=== PATIENT | female | born 1960 | race Caucasian/White ===

== ENCOUNTER 2016-11-26 00:36 | Emergency (ER) | payer BC ==
[~2016-11-26] VITALS: Ht 162.6 cm; Wt 88.0 kg
[~2016-11-26 00:36] MED LIST: ALL180 PO; ASCA500 PO; ESTR1TAB2 PO; LIDO5CRE3 RE; MULT-506 PO; MULTCAP7 PO; OMEG10007 PO; POLY335025 PO; PRT/20 PO; SENNTAB23 PO; TRMCR515 TOP
[2016-11-26 00:40] VITALS: TEMP 36.5; Ht 162.6 cm; Wt 88.0 kg
[2016-11-26] MEDS ORDERED: SODIUM CHLORIDE 0.9% 1000ML 1,000 ML IV STA ×2 (00:51→01:50)
[2016-11-26 01:33] LABS: BASO % 0.1 %; BASO ABS # 0.02 K/uL (0-0.2); COMPLETE YES; EOS % 0.4 %; HEMATOCRIT 45.8 % (37-47); IG% 0.2 %; LYMPH % 6.5 %; LYMPH ABS # 1.12 K/uL (1.2-3.4); MEAN CELL VOLUME 88.6 fL (80-100); MEAN CORPUSCULAR HEMOGLOBIN 32.5 pg (25-34); MEAN CORPUSCULAR HGB CONC 36.7 g/dl (32-36); MEAN PLATELET VOLUME 9.8 fL (7.4-10.4); NEUT % 87.8 %; PLATELET COUNT 236 K/uL (130-400); RED BLOOD COUNT 5.17 M/uL (4.2-5.4); WHITE BLOOD COUNT 17.14 K/uL (4.8-10.8)
[2016-11-26] MEDS ORDERED: ONDANSETRON INJ 2 MG/ML 2 ML VIAL IV STA (01:50)
[2016-11-26 02:02] LABS: URINE APPEARANCE CLOUDY (CLEAR); URINE BILIRUBIN NEG (NEG); URINE COLOR DK YELLOW; URINE EPITHELIAL CELL AUTO >30 /lpf (0-5); URINE NITRITE POS (NEG); UROBILINOGEN NEG (NEG); ZZUR CULT IF INDIC CLEAN CATCH YES
[2016-11-26 02:03] LABS: MANUAL MICROSCOPIC REQUIRED? NO; REVIEW REQ? YES
[2016-11-26 02:10] LABS: ALKALINE PHOSPHATASE 80 U/L (45-117); ALT/SGPT 29 U/L (12-78); AST/SGOT 28 U/L (15-37); BLOOD UREA NITROGEN 21 mg/dl (7-18); BUN/CREATININE RATIO 20.6 (10-20); CARBON DIOXIDE 21 mmol/L (21-32); CHLORIDE 109 mmol/L (98-107); GLUCOSE 128 mg/dl (70-99); POTASSIUM 4.5 mmol/L (3.5-5.1); SODIUM 143 mmol/L (136-145)
[2016-11-26 02:28] LABS: URINE MUCUS PRESENT (NONE PRSENT)
[2016-11-26] MEDS ORDERED: CEFTRIAXONE SOD INJ 1 GM ADDVIAL IV STA (02:36)
[2016-11-26] MEDS ORDERED: ONDANSETRON HOME PACK 4MG OD TAB PO ONE (04:00)
[2016-11-26] MEDS ORDERED: PHENERGAN 25MG HOMEPACK PO ONE (04:00)
[2016-11-26] MEDS ORDERED: CEPH500C2 PO (04:06)
[2016-11-26] MEDS ORDERED: PROM25TA9 PO (04:06)
[2016-11-26] MEDS ORDERED: ONDA4TAB10 SL (04:06)
--- NOTE | 2016-11-26 04:06 | EMERGENCY ROOM VISIT NOTE ---
History Report prepared by Dot: Matthias Harvey Under the Supervision of: Dr. Leon Mayer M.D. First contact with patient: 00:47 Chief Complaint: FLU LIKE SX Stated Complaint: NAUSEA/VOMITING/DIARRHEA History of Present Illness The patient is a 56 year old female who presents to the Emergency Room with complaints of improving nausea since 1999 tonight. She was given Zofran en route in the ambulance. The patient also complains of vomiting, diarrhea, chills , and leg cramping. She has not had any fevers, body aches, or urinary symptoms. She had cough and cold symptoms last week, which are resolved. The patient is not aware of any sick contacts. The patient is not receiving chemotherapy. Source of History: patient Onset: 1999 Position: other (GI) Quality: other (nausea) Timing: other (improving) Modifying Factors (Relieving): other (zofran) Associated Symptoms: + chills, No cough, No fevers, No urinary symptoms Review of Systems See HPI for pertinent positives & negatives. A total of 10 systems reviewed and were otherwise negative. Past Medical & Surgical Medical Problems: (1) Lumbar disc disease Family History No pertinent family history Social History Smoking Status: Never Smoker Marital Status: Housing Status: lives with family Current/Historical Medications Scheduled Ascorbic Acid (Vitamin C), 500 MG PO QAM Cephalexin Monohydrate (Keflex), 500 MG PO TID Fexofenadine Hcl (Monica *), 180 MG PO QAM Fish Oil (Polo-3), 2,000 MG PO QAM Lidocaine (Anorectal) (Recticare), 1 DOSE RE BID Multiple Vitamins W/ Minerals (Eye Vitamins), 2 CAP PO QAM Multivitamin (Multivitamin), 1 TAB PO QAM Ondasetron Odt (Zofran Odt), 4-8 MG SL Q6H Pantoprazole (Protonix), 20 MG PO QAM Polyethylene Glycol 3350 (Miralax), 7 GM PO QAM Sennosides-Docusate Sodium (Stool Softener), 1 TAB PO QAM Triamcinolone Acet (Triamcinolone Acetonide), 1 APPLN TOP BID Scheduled PRN Promethazine Hcl (Phenergan), 25 MG PO Q4H PRN for Nausea Allergies Coded Allergies: CI Pigment Blue 63 (Verified Allergy, Severe, DIFFICULTY BREATHING, 11/26/16 ) Dexlansoprazole (Verified Allergy, Severe, DIFFICULTY BREATHING, 11/26/16) Molds & Smuts (Verified Allergy, Severe, SHORTNESS OF BREATH, 11/26/16) BEE STING (Verified Allergy, Intermediate, RASH, 11/26/16) Dog Dander (Verified Adverse Reaction, Intermediate, Sore throat, sneeze, eyes water, 11/26/16) Physical Exam Vital Signs Date Time Temp Pulse Resp B/P Pulse Ox O2 Delivery O2 Flow Rate FiO2 11/26/16 04:13 94 16 133/89 95 Room Air 11/26/16 03:37 92 18 134/75 93 Room Air 11/26/16 02:07 79 11/26/16 02:00 44 20 114/66 97 Room Air 11/26/16 00:40 36.5 89 22 128/54 98 Room Air Physical Exam GENERAL: Patient is well appearing and in mild distress. HEENT: No acute trauma, normocephalic atraumatic, mucous membranes dry, no nasal congestion, no scleral icterus. NECK: No stridor, no adenopathy, no meningismus, trachea is midline. LUNGS: No dyspnea. Clear to auscultation and equal bilaterally. No wheeze, no rhonchi. HEART: Regular rate and rhythm. No murmurs, rubs, gallops appreciated. ABDOMEN: Soft, nontender, bowel sounds positive, no masses appreciated, no peritonitis. BACK: No midline tenderness, no CVA tenderness EXTREMITIES: Normal motion all extremities, no cyanosis, no edema. NEUROLOGIC: Alert and oriented, no acute motor or sensory deficits, no focal weakness, cranial nerves grossly intact. SKIN: No rash, no jaundice, no diaphoresis. Medical Decision & Procedures Laboratory Results 11/26/16 01:15 Red Blood Count 5.17, Mean Corpuscular Volume 88.6, Mean Corpuscular Hemoglobin 32.5, Mean Corpuscular Hemoglobin Concent 36.7, Mean Platelet Volume 9.8, Neutrophils (%) (Auto) 87.8, Lymphocytes (%) (Auto) 6.5, Monocytes (%) (Auto) 5.0, Eosinophils (%) (Auto) 0.4, Basophils (%) (Auto) 0.1, Neutrophils # (Auto) 15.03, Lymphocytes # (Auto) 1.12, Monocytes # (Auto) 0.86, Eosinophils # (Auto) 0.07, Basophils # (Auto) 0.02 11/26/16 01:15 Test 11/26/16 01:15 11/26/16 01:25 White Blood Count 17.14 K/uL (4.8-10.8) Red Blood Count 5.17 M/uL (4.2-5.4) Hemoglobin 16.8 g/dL (12.0-16.0) Hematocrit 45.8 % (37-47) Mean Corpuscular Volume 88.6 fL (80-100) Mean Corpuscular Hemoglobin 32.5 pg (25-34) Mean Corpuscular Hemoglobin Concent 36.7 g/dl (32-36) Platelet Count 236 K/uL (130-400) Mean Platelet Volume 9.8 fL (7.4-10.4) Neutrophils (%) (Auto) 87.8 % Lymphocytes (%) (Auto) 6.5 % Monocytes (%) (Auto) 5.0 % Eosinophils (%) (Auto) 0.4 % Basophils (%) (Auto) 0.1 % Neutrophils # (Auto) 15.03 K/uL (1.4-6.5) Lymphocytes # (Auto) 1.12 K/uL (1.2-3.4) Monocytes # (Auto) 0.86 K/uL (0.11-0.59) Eosinophils # (Auto) 0.07 K/uL (0-0.5) Basophils # (Auto) 0.02 K/uL (0-0.2) RDW Standard Deviation 40.0 fL (36.4-46.3) RDW Coefficient of Variation 12.4 % (11.5-14.5) Immature Granulocyte % (Auto) 0.2 % Immature Granulocyte # (Auto) 0.04 K/uL (0.00-0.02) Anion Gap 13.0 mmol/L (3-11) Est Creatinine Clear Calc Drug Dose 66.7 ml/min Estimated GFR () 72.4 Estimated GFR (Non- 62.5 BUN/Creatinine Ratio 20.6 (10-20) Calcium Level 9.0 mg/dl (8.5-10.1) Total Bilirubin 0.6 mg/dl (0.2-1) Direct Bilirubin mg/dl (0-0.2) Aspartate Amino Transf (AST/SGOT) 28 U/L (15-37) Alanine Aminotransferase (ALT/SGPT) 29 U/L (12-78) Alkaline Phosphatase 80 U/L (45-117) Total Protein 7.3 gm/dl (6.4-8.2) Albumin 4.0 gm/dl (3.4-5.0) Lipase 97 U/L (73-393) Chemistry Specimen Hemolysis Urine Color DK YELLOW Urine Appearance CLOUDY (CLEAR) Urine pH 5.0 (4.5-7.5) Urine Specific [place] 1.030 (1.000-1.030) Urine Protein 1+ (NEG) Urine Glucose (UA) NEG (NEG) Urine Ketones 1+ (NEG) Urine Occult Blood NEG (NEG) Urine Nitrite POS (NEG) Urine Bilirubin NEG (NEG) Urine Urobilinogen NEG (NEG) Urine Leukocyte Esterase SMALL (NEG) Urine WBC (Auto) 10-30 /hpf (0-5) Urine RBC (Auto) 0-4 /hpf (0-4) Urine Hyaline Casts (Auto) 10-30 /lpf (0-5) Urine Epithelial Cells (Auto) >30 /lpf (0-5) Urine Bacteria (Auto) 2+ (NEG) Urine Pathogenic Casts /lpf (0) Urine Mucus PRESENT (NONE PRSENT) Laboratory results as reviewed by me. Medications Administered Medications (Trade) Dose Ordered Sig/Cornelio Route Start Time Stop Time Status Last Admin Dose Admin Sodium Chloride 1,000 ml @ 999 mls/hr Q1H1M STAT IV 11/26/16 00:51 11/26/16 01:51 DC 11/26/16 00:55 999 MLS/HR Sodium Chloride (Nss 1000ml) 1,000 ml @ 999 mls/hr Q1H1M STAT IV 11/26/16 01:50 11/26/16 02:50 DC 11/26/16 01:57 999 MLS/HR Ondansetron HCl (Zofran Inj) 4 mg NOW STAT IV 11/26/16 01:50 11/26/16 01:51 DC 11/26/16 01:56 4 MG Ceftriaxone Sodium (Rocephin Inj) 1 gm NOW STAT IV 11/26/16 02:36 11/26/16 02:37 DC 11/26/16 02:41 1 GM Ondansetron HCl (ZOFRAN ODT 4MG Home Pack) 1 homepack UD ONCE PO 11/26/16 04:00 11/26/16 04:01 DC 11/26/16 04:15 1 HOMEPACK Promethazine HCl (Phenergan 25MG Home Pack) 1 homepack UD ONCE PO 11/26/16 04:00 11/26/16 04:01 DC 11/26/16 04:15 1 HOMEPACK ED Course 0045: The patient was evaluated in room A11b. A complete history and physical exam was performed. 0051: NSS 1000 ml @ 999 mls/hr. 0144: The patient is feeling more nauseous. I will order Zofran and more normal saline. 0150: Zofran 4 mg IV, NSS 1000 ml @ 999 mls/hr. 0233: The patient feels much better. 0236: Rocephin 1 gm IV. 0355: The patient is feeling good and wants to go home. I discussed the pros and cons of CT scan. She would like to avoid it for now. 0400: Reevaluated the patient. Discussed results and discharge instructions: She verbalized understanding and agreement. The patient is ready for discharge. 0400: Zofran 4 mg PO home pack, Phenergan 25 mg PO home pack. Medical Decision Differential: Gastroenteritis, Food Borne, Esophageal Perforation, , Electrolyte Abnormality, Dehydration, Intraabdominal Infection, UTI/ Pyelonephritis, Bowel Obstruction, Biliary Pathology, amongst other pathology entertained. 56 yr old female arrives with nausea, vomiting and diarrhea. Given zofran/ fluids with vast improvement. WBC 17 though no fever, no TTP abdomin and no respiratory issues. Does have dirty urine which could be infected as patient admits she urinates frequently throughout the day. She is not septic. Will give IV dose rocephin for UTI as this will cover her. I did discuss option of CT abdo/pelv given wbc elevation but with her feeling much better she would like to go home and see how she does over next 6-12 hours. Given 2 L NSS with improvement in patient symptoms and breathing comfortably No chest pain nor SHOB. Comfortable with discharge. Home with zofran/phenergan. Discussed symptoms requiring RTED. Impression Primary Impression: Nausea, vomiting and diarrhea Additional Impression: UTI (urinary tract infection) Scribe Attestation The scribe's documentation has been prepared under my direction and personally reviewed by me in its entirety. I confirm that the note above accurately reflects all work, treatment, procedures, and medical decision making performed by me. Departure Information Dispostion Home / Self-Care Prescriptions Promethazine Hcl (Phenergan) 25 Mg Tab 25 MG PO Q4H Y for Nausea, #20 TAB Prov: Leon Mayer M.D. 11/26/16 Ondasetron Odt (ZOFRAN ODT) 4 Mg Tab 4-8 MG SL Q6H for Nausea, #20 TAB Prov: Leon Mayer M.D. 11/26/16 Cephalexin Monohydrate (KEFLEX) 500 Mg Cap 500 MG PO TID, #15 CAP Prov: Leon Mayer M.D. 11/26/16 Referrals Chevy Raza M.D. (PCP) Forms HOME CARE DOCUMENTATION FORM, IMPORTANT VISIT INFORMATION Patient Instructions A Signature Page, ED Gastroenteritis Viral, [facility]
[2016-11-26 04:13] VITALS: BP 133/89; PULSE 94; O2SAT 95
== END 2016-11-26 04:23 | disposition home or self-care (01) ==
LOC: EDBD 00:36 → C.EDA 00:37
DX: R11.2 Nausea with vomiting, unspecified (principal); N39.0 Urinary tract infection, site not specified; R19.7 Diarrhea, unspecified; M51.36 Other intervertebral disc degeneration, lumbar region; Z79.899 Other long term (current) drug therapy; Z88.8 Allergy status to other drugs, medicaments and biological substances; Z91.030 Bee allergy status

== ENCOUNTER → 2017-06-07 | Outpatient (CLI) | payer BC ==
[~2017-06-07] MED LIST changes: -ESTR1TAB2 PO
[2017-06-07 10:42] LABS: BASO % 0.3 %; BASO ABS # 0.02 K/uL (0-0.2); COMPLETE YES; EOS % 1.9 %; IG% 0.1 %; LYMPH % 35.4 %; LYMPH ABS # 2.42 K/uL (1.2-3.4); MEAN CELL VOLUME 90.7 fL (80-100); MEAN CORPUSCULAR HGB CONC 35.2 g/dl (32-36); MEAN PLATELET VOLUME 10.3 fL (7.4-10.4); MONO % 8.6 %; NEUT % 53.7 %; PLATELET COUNT 215 K/uL (130-400); RED BLOOD COUNT 4.63 M/uL (4.2-5.4); WHITE BLOOD COUNT 6.84 K/uL (4.8-10.8)
[2017-06-07 10:43] LABS: URINE APPEARANCE CLEAR (CLEAR); URINE BILIRUBIN NEG (NEG); URINE COLOR YELLOW; URINE NITRITE NEG (NEG); URINE PH 7.5 (4.5-7.5); URINE SPECIFIC GRAVITY 1.006 (1.000-1.030); UROBILINOGEN NEG (NEG)
[2017-06-07 10:47] LABS: MANUAL MICROSCOPIC REQUIRED? NO; REVIEW REQ? NO
[2017-06-07 11:18] LABS: ALT/SGPT 28 U/L (12-78); AST/SGOT 20 U/L (15-37); BLOOD UREA NITROGEN 10 mg/dl (7-18); BUN/CREATININE RATIO 15.9 (10-20); CALCIUM 9.1 mg/dl (8.5-10.1); CARBON DIOXIDE 28 mmol/L (21-32); CHLORIDE 108 mmol/L (98-107); CREATININE 0.63 mg/dl (0.60-1.20); GLUCOSE 84 mg/dl (70-99); POTASSIUM 3.9 mmol/L (3.5-5.1); SODIUM 141 mmol/L (136-145)
[2017-06-07 11:29] LABS: ALB/GLOB RATIO 1.2 (0.9-2); ALKALINE PHOSPHATASE 83 U/L (45-117); CHOLESTEROL 178 mg/dl (0-200); CHOLESTEROL/HDL RATIO 3.1; HDL CHOLESTEROL 58 mg/dl; LDL CHOLESTEROL CALCULATED 86 mg/dl; TRIGLYCERIDES 170 mg/dl (0-150); VERY LOW DENSITY LIPOPROT CALC 34 mg/dl
== END | disposition home or self-care (01) ==
LOC: C.LAB1850 09:59
PROVIDERS: ATTEND Internal Medicine Pulmonary Disease
DX: Z00.00 Encounter for general adult medical examination without abnormal findings (principal); J30.9 Allergic rhinitis, unspecified; D32.9 Benign neoplasm of meninges, unspecified; E78.1 Pure hyperglyceridemia; K44.9 Diaphragmatic hernia without obstruction or gangrene

== ENCOUNTER → 2017-09-16 | Outpatient (CLI) | payer BC ==
--- NOTE | 2017-09-16 14:33 | MAMMOGRAPHY REPORT ---
BILATERAL DIGITAL SCREENING MAMMOGRAM TOMOSYNTHESIS WITH CAD: 09/16/2017 CLINICAL HISTORY: Routine screening. Patient has no complaints. TECHNIQUE: Breast tomosynthesis in addition to standard 2D mammography was performed. Current study was also evaluated with a Computer Aided Detection (CAD) system. COMPARISON: Comparison is made to exams dated: 09/10/2016 mammogram, 09/05/2015 mammogram, 4 mammogram, 08/28/2013 mammogram, 08/23/2012 mammogram, and 08/18/2011 mammogram - [facility]. BREAST COMPOSITION: The tissue of both breasts is extremely dense, which lowers the sensitivity of m ammography. FINDINGS: No suspicious masses, calcifications, or areas of architectural distortion are noted in ei ther breast. There has been no significant interval change compared to prior exams. Benign-appearing round/oval circumscribed and partially circumscribed/partially obscured masses are again noted bilat erally, which are considered benign given the morphology as well as multiplicity and bilaterality and likely represent cysts, with cysts seen on a prior ultrasound exam. Bilateral benign-appearing calc ifications are also stable. IMPRESSION: ACR BI-RADS CATEGORY 2: BENIGN There is no mammographic evidence of malignancy. A 1 year screening mammogram is recommended. The pa tient will receive written notification of the results. Approximately 10% of breast cancers are not detected with mammography. A negative mammographic report should not delay biopsy if a clinically suggestive mass is present. Lexus Trujillo M.D. /:09/16/2017 08:42:50 Cake Batter Mixer: Modesta ROTHMAN(Aby)(Mahsa)(EMMANUEL), [facility] letter sent: Normal 1/2 BI-RADS Code: ACR BI-RADS Category 2: Benign
== END | disposition home or self-care (01) ==
LOC: C.MAMM 08:17
PROVIDERS: ATTEND Obstetrics & Gynecology
DX: Z12.31 Encounter for screening mammogram for malignant neoplasm of breast (principal)

== ENCOUNTER → 2017-10-18 | Outpatient (CLI) | payer BC | END | disposition home or self-care (01) | LOC: C.RDSM 12:09 | PROVIDERS: ATTEND Family Medicine Sports Medicine | DX: M54.2 Cervicalgia (principal) ==

== ENCOUNTER 2019-04-06 05:13 | Inpatient (IN) ==
--- NOTE | 2019-03-14 15:28 | PAT Medication Instructions ---
Medication Instructions Date of Service March 14, 2019 Home Medications PreserVision AREDS-2 2 tab PO QAM ascorbic acid (vitamin C) [Vitamin 500 mg PO QAM clobetasol 1 applic TOPICAL UD diclofenac sodium 1 dose TOPICAL UD PRN docusate sodium [Stool Softener] 2 tab PO QAM fexofenadine [Monica Allergy] 180 mg PO HS lidocaine [RectiCare] 1 applic TOPICAL UD multivitamin 1 tab PO QAM nystatin [Nyamyc] 1 applic TOPICAL BID omega 5-qtb-rbv-fish oil [Fish Oil] 2 cap PO BID pantoprazole 20 mg PO BID polyethylene glycol 3350 [Miralax] 17 g PO DAILY STOP taking 2 weeks before surgery (or as soon as possible if surgery is within 2 weeks) PreserVision AREDS-2 2 tab PO QAM omega 0-fej-nrl-fish oil [Fish Oil] 2 cap PO BID STOP taking 24 hours before surgery clobetasol 1 applic TOPICAL UD diclofenac sodium 1 dose TOPICAL UD PRN lidocaine [RectiCare] 1 applic TOPICAL UD nystatin [Nyamyc] 1 applic TOPICAL BID DO NOT take the morning of surgery ascorbic acid (vitamin C) [Vitamin 500 mg PO QAM docusate sodium [Stool Softener] 2 tab PO QAM multivitamin 1 tab PO QAM polyethylene glycol 3350 [Miralax] 17 g PO DAILY Take morning of surgery With a small sip of water, OTHERWISE NOTHING TO EAT OR DRINK AFTER MIDNIGHT: pantoprazole 20 mg PO BID Take evening before surgery fexofenadine [Monica Allergy] 180 mg PO HS pantoprazole 20 mg PO BID Other Notes If you have any questions please call us at [phone] or [phone] or [phone] or [phone]
--- NOTE | 2019-03-15 12:18 | Anesthesiology Consultation ---
Date of Service March 15, 2019 Assessment & Plan (1) Encounter for pre-operative examination: Chart Review Chart Review: Acceptable Risk for Surgery and Patient seen in Pre Admission Testing Consults Requested medical (Dr. Raza (03/21)) Patient was seen by PCP's office on 03/21. Per notes from that visit, "Patient is medically cleared for left TKA on 04/06/[address] Wheeler." Teaching & Discussion Pre-Anesthesia Teaching/Discussion Notes: Instructed NPO after midnight before surgery, except medications with 15 cc of water. Medication instructions provided according to the PAT guidelines. History Surgery Operation Date: 04/06/19 07:15 Proposed Procedures p Left Total Knee Arthroplasty - Harmeet Wheeler MD Height/Weight Height: 5 ft 4 in Weight: 94.3 kg Allergies Allergy/AdvReac Type Severity Reaction Status Date / Time blue dye Allergy Severe DIFFICULTY Verified 03/08/19 09:06 BREATHING dexlansoprazole Allergy Severe DIFFICULTY Verified 03/08/19 09:06 BREATHING bee venom protein (honey bee) Allergy Intermediate RASH/SWELLI Verified 03/08/19 09:06 NG mold Allergy Intermediate SHORTNESS Verified 03/08/19 09:06 OF BREATH dog dander AdvReac Intermediate Sore Verified 03/08/19 09:06 throat, sneeze, eyes water Medications Home Medications Medication Instructions Recorded Confirmed Last Taken PreserVision AREDS-2 2 tab PO QAM 01/31/19 03/08/19 02/15/19 08:00 ascorbic acid (vitamin C) [Vitamin 500 mg PO QAM 01/31/19 03/08/19 02/15/19 08:00 C] clobetasol 1 applic TOPICAL UD 01/31/19 03/08/19 02/15/19 08:00 diclofenac sodium 1 dose TOPICAL UD PRN 01/31/19 03/08/19 02/15/19 08:00 docusate sodium [Stool Softener] 2 tab PO QAM 01/31/19 03/08/19 02/15/19 12:00 fexofenadine [Monica Allergy] 180 mg PO HS 01/31/19 03/08/19 02/15/19 08:00 lidocaine [RectiCare] 1 applic TOPICAL UD 01/31/19 03/08/19 02/15/19 08:00 multivitamin 1 tab PO QAM 01/31/19 03/08/19 02/15/19 08:00 nystatin [Nyamyc] 1 applic TOPICAL BID 01/31/19 03/08/19 02/15/19 08:00 omega 8-lry-nek-fish oil [Fish Oil] 2 cap PO BID 01/31/19 03/08/19 02/15/19 08:00 pantoprazole 20 mg PO BID 01/31/19 03/08/19 02/15/19 17:00 polyethylene glycol 3350 [Miralax] 17 g PO DAILY 01/31/19 03/08/19 02/15/19 13:00 Past Medical History Medical History Anxiety Endometriosis GERD (gastroesophageal reflux disease) Macular degeneration Osteoarthritis Spinal stenosis Past Family History Family History Mother Family history of diabetes mellitus Past Surgical History Surgical History Brain tumor REMOVED/BENIGN 201004/21/11 - ETT #7.0, MAC #3, Grade 2 View Cyst ALL OVER BODY (UTERUS CYST/CERVICAL CYST/HAIRLINE/FINGER CYST REMOVED) History of adenoidectomy History of appendectomy History of colonoscopy History of esophagogastroduodenoscopy (EGD) History of hysterectomy History of tonsillectomy History of tooth extraction Hx of LASIK Past Anesthesia History No Hx of Anesthesia Complications, Difficult Airway (? Difficult intubation in 2010?) and No Family Hx of Anesthesia Complications Patient is slow to wake and doesn't take much medication to fall asleep. History of PONV No Motion Sickness Screening History of Motion Sickness: Yes Social History Smoking Status: Never smoker Do You Dip or Chew Tobacco: No Hx Alcohol Use: Yes Alcohol type: other alcohol intake frequency: a few times a month Alcohol Intake Frequency Comment: RARE SOCIAL DRINK Hx Substance Use: No substance use type: does not use Exercise / Class Metabolic Activity II 4-5 Yardwork/Stairs/Walk up hill (5-7K steps per day. Goes to gym 3x per week. Walks daily. Able to climb FOS. Denies CP or SOB. ) Review of Systems Patient denies chest pain, shortness of breath, dyspnea on exertion, cough, wheezing, palpitations. +Joint Pain (Knees) +Acid Reflux (Controlled with medications) Physical Exam Vital Signs BP: 131/87 P: 74 R: 14 T: 97.8 SPO2: 97% on RA Constitutional + obese ENMT Thyromental Distance: > or= 3.5 Finger Breadths (4) Mallampati Class: I Neck normal visual inspection and trachea midline; neck extension not limited Respiratory normal respiratory effort Auscultation: lungs clear to auscultation bilaterally Cardiovascular Rate/Rhythm: regular rate and regular rhythm Heart Sounds: no murmur Vessels: no carotid bruit Neurologic moves all extremities Psychiatric Orientation: alert and oriented x 3 Testing Electrocardiogram Date: 03/15/19 Sinus rhythm at 64bpm with 1st degree AV block. Nonspecific ST abnormality. When compared with ECG of 03/19/11, PVCs are no longer present. Nonspecific T wave abnormality, improved in lateral leads. Laboratory Results 03/15/19 11:54 03/15/19 11:54 Blood Type O Positive 03/15/19 11:54 Antibody Screen NEGATIVE 03/15/19 11:54 PT 10.7 Seconds (9.0-12.0) 03/15/19 11:54 INR 1.0 (0.9-1.1) 03/15/19 11:54 APTT 28.7 Seconds (21.0-31.0) 03/15/19 11:54 Hemoglobin A1c 5.4 % (4.5-5.6) 03/15/19 11:54 Urine Color Yellow 03/15/19 11:45 Urine Appearance Clear (Clear) 03/15/19 11:45 Urine pH 6.0 (4.5-7.5) 03/15/19 11:45 Ur Specific [place] 1.019 (1.000-1.030) 03/15/19 11:45 Urine Protein Negative (Negative) 03/15/19 11:45 Urine Glucose (UA) Negative (Negative) 03/15/19 11:45 Urine Ketones Trace (Negative) H 03/15/19 11:45 Urine Nitrite Negative (Negative) 03/15/19 11:45 Ur Leukocyte Esterase Trace (Negative) H 03/15/19 11:45 Urine WBC (Auto) 1-5 /hpf (0-5) 03/15/19 11:45 Urine RBC (Auto) 5-10 /hpf (0-4) H 03/15/19 11:45 U Hyaline Cast (Auto) 1-5 /lpf (0-5) 03/15/19 11:45 U Epithel Cells (Auto) >30 /lpf (0-5) H 03/15/19 11:45 Urine Bacteria (Auto) 1+ (Negative) H 03/15/19 11:45 03/15/19 11:45 Urine Culture - Final Urine,Clean Catch Gardnerella-like bacilli
[2019-03-15 12:36] LABS: Basophils # (auto) 0.04 K/uL (0-0.2); Basophils % (auto) 0.6 %; Eosinophils # (auto) 0.14 K/uL (0-0.5); Hemoglobin 15.9 g/dL (12.0-16.0); Immature Granulocytes # (auto) 0.02 K/uL (0.00-0.02); Immature Granulocytes % (auto) 0.3 %; Lymphocytes # (auto) 2.44 K/uL (1.2-3.4); Lymphocytes % (auto) 35.3 %; Mean Corpuscular Hgb Conc 36.1 g/dL (32-36); Mean Corpuscular Volume 88.7 fL (80-100); Mean Platelet Volume 10.3 fL (7.4-10.4); Monocytes # (auto) 0.51 K/uL (0.11-0.59); Monocytes % (auto) 7.4 %; Neutrophils # (auto) 3.76 K/uL (1.4-6.5); Neutrophils % (auto) 54.4 %; Platelet Count 236 K/uL (130-400); RDW Coefficient of Variation 12.9 % (11.5-14.5); RDW Standard Deviation 41.3 fL (36.4-46.3); Red Blood Count 4.96 M/uL (4.2-5.4); White Blood Count 6.91 K/uL (4.8-10.8)
[2019-03-15 12:50] LABS: Partial Thromboplastin Ratio 1.1; Partial Thromboplastin Time 28.7 Seconds (21.0-31.0); Prothrombin Time 10.7 Seconds (9.0-12.0)
[2019-03-15 13:00] LABS: Calcium 9.8 mg/dl (8.5-10.1); Creatinine Clr Calc Pharmacy 100.9 ml/min; Est GFR (African American) 111.3
[2019-03-15 13:03] LABS: Albumin Globulin Ratio 1.2 (0.9-2); Bilirubin,Total 0.5 mg/dl (0.2-1); Globulin 3.4 gm/dl (2.5-4.0); Total Protein 7.4 gm/dl (6.4-8.2)
[2019-03-15 13:29] LABS: Estimated Average Glucose 108 mg/dl; Hemoglobin A1C 5.4 % (4.5-5.6)
[2019-03-15 14:28] LABS: Appearance Urine Clear (Clear); Bilirubin Urine Negative (Negative); Blood Urine Trace (Negative); Color Urine Yellow; Epithelial Cell Urine Auto >30 /lpf (0-5); Glucose Urine UA Negative (Negative); Ketones Urine Trace (Negative); Leukocyte Esterase Urine Trace (Negative); Nitrite Urine Negative (Negative); Protein Urine Negative (Negative); Specific Gravity Urine 1.019 (1.000-1.030); Urobilinogen Urine Negative (Negative)
[2019-03-15 14:39] LABS: Bacteria Urine Automated 1+ (Negative); Mucus Urine Present (None Prsent)
--- NOTE | 2019-03-15 16:11 | History & Physical Report ---
Date of Service March 15, 2019 Assessment & Plan (1) Unilateral primary osteoarthritis, left knee: DIAGNOSES: Left knee osteoarthritis. PROCEDURE: Left total knee arthroplasty. PLAN: The patient is scheduled to undergo this procedure with Dr. Harmeet Wheeler at the [facility] as an inpatient on April 06, 2019. Risks and complications of the procedure such as infection, bleeding, pain, scarring, nerve and blood vessel damage, weakness, wound problems, stiffness, incomplete relief of symptoms, heart attack, stroke, , hardware failure, loosening, wear, fracture, blood clots, and embolism were explained to the patient at Dr. Bhat's visit on January 24 and informed consent to perform the procedure was obtained at that time. We are still awaiting medical clearance from the patient's primary care provider, Dr. Chevy Raza. We will also need to obtain a preoperative CBC with differential, complete metabolic panel, PT, INR, blood type and screen, urinalysis, urine culture, EKG, hemoglobin A1c, and a nasal culture for MRSA. The patient states she will obtain the necessary tests prior to preanesthesia clearance this afternoon. The patient will be scheduled for her 2-week postoperative follow up with myself 2 weeks after the procedure. I advised her that I will provide her with prescriptions for narcotic pain medication and diclofenac sodium upon discharge from the hospital. PDMP was checked and no red flags were raised that prevents us from prescribing opioid analgesic. Also instructed about the use of a baby aspirin twice daily for DVT prophylaxis and the use of Extra Strength Tylenol with heavier the dose of the opioid analgesics for pain control. The patient states she will most likely do her therapy at home with [facility] upon discharge. I did provide her with an order to obtain a walker during today's visit. The patient was given information about use of antibiotics prior to dental cleaning or procedures after joint replacement surgery. I provided to her with paperwork to obtain a handicap placard for 6 months after the procedure. I also provided her with information about lectures offered by the [facility] in regards to joint replacement therapy. The patient was advised that she will need to use a knee immobilizer 48 hours postoperatively on the operative limb or until she can fire her quadriceps muscle and perform a straight leg raise test. She is advised to bring a walker with her to the hospital on the day of her procedure. I also educated her about prepping the area with the prep wipes that will be provided by Anesthesia at her appointment with him this afternoon. The patient verbalized understanding of all information provided during today's visit, thanked us for the care she has received, and states if she has questions or concerns that should arise prior to her surgery date, she will contact the clinic. The patient was also x-rayed today using a sizing ball. History of Present Illness Chief Complaint: CHIEF COMPLAINT: Left knee pain. Primary Care Provider: Chevy Raza MD HISTORY OF PRESENT ILLNESS: This 59-year-old female who presents to clinic today for preoperative history and physical. The patient complains of approximately 20-year history of left knee pain. She states that this past July she fell, striking the knee, and since that time has had increased pain. She has failed conservative treatment with steroid injections, use of topical and oral anti-inflammatory medication, and pain relieving agents. She has also tried physical therapy without improvement. The patient complains of circumferential pain around the entire left knee, worse over the medial surface. The patient has been wearing a knee brace and also using Tylenol with only minimal relief. PAST SURGICAL HISTORY: Tonsillectomy/adenoidectomy, hemorrhoid excision, hysterectomy, LASIK eye surgery, appendectomy, colonoscopy, dental surgery, brain surgery (excision of meningioma), EGD, occipital cyst excision, barium swallow, rectal biopsy, and dental implant. PAST MEDICAL HISTORY: Hemorrhoids, eczema, macular degeneration, idiopathic urticaria, dysphagia, history of sebaceous cyst, lumbar radiculopathy, seborrheic keratosis, constipation, cervical radiculopathy, degenerative disk disease of the cervical spine, brain tumor (meningioma), diabetes, hypertriglyceridemia, lichen sclerosus, and obesity. FAMILY HISTORY: Positive for cancer, diabetes, heart disease, and problems with anesthesia. ALLERGIES: THE PATIENT HAS MEDICATION ALLERGIES TO DEXILANT, DUST, DUST MITES, AND MOLD. CURRENT MEDICATIONS: Monica 180 mg tablet daily, pantoprazole 20 mg tablet 2 times daily, fish oil 4 soft gels 2 a day, PreserVision Ared 2, 2 pills daily, MiraLax 1 capful mixed with liquid daily, stool softener 2 caplets daily, diclofenac topical 1% gel 4 times daily as needed, clobetasol propionate cream applied once daily, Nyamyc powder applied to her belly daily, RectiCare lidocaine 5% cream applied daily, multivitamin 1 a day, 50+ daily, and vitamin C 500 mg capsules daily. SOCIAL HISTORY: Completely unremarkable. Allergies Allergy/AdvReac Type Severity Reaction Status Date / Time blue dye Allergy Severe DIFFICULTY Verified 03/08/19 09:06 BREATHING dexlansoprazole Allergy Severe DIFFICULTY Verified 03/08/19 09:06 BREATHING bee venom protein (honey bee) Allergy Intermediate RASH/SWELLI Verified 03/08/19 09:06 NG mold Allergy Intermediate SHORTNESS Verified 03/08/19 09:06 OF BREATH dog dander AdvReac Intermediate Sore Verified 03/08/19 09:06 throat, sneeze, eyes water Home Medications Home Medications Medication Instructions Recorded Confirmed Type PreserVision AREDS-2 2 tab PO QAM 01/31/19 03/08/19 History ascorbic acid (vitamin C) [Vitamin 500 mg PO QAM 01/31/19 03/08/19 History C] clobetasol 1 applic TOPICAL UD 01/31/19 03/08/19 History diclofenac sodium 1 dose TOPICAL UD PRN 01/31/19 03/08/19 History docusate sodium [Stool Softener] 2 tab PO QAM 01/31/19 03/08/19 History fexofenadine [Monica Allergy] 180 mg PO HS 01/31/19 03/08/19 History lidocaine [RectiCare] 1 applic TOPICAL UD 01/31/19 03/08/19 History multivitamin 1 tab PO QAM 01/31/19 03/08/19 History nystatin [Nyamyc] 1 applic TOPICAL BID 01/31/19 03/08/19 History omega 7-[id number]-blg-fish oil [Fish Oil] 2 cap PO BID 01/31/19 03/08/19 History pantoprazole 20 mg PO BID 01/31/19 03/08/19 History polyethylene glycol 3350 [Miralax] 17 g PO DAILY 01/31/19 03/08/19 History Past Med/Surg History Medical History Anxiety Endometriosis GERD (gastroesophageal reflux disease) Macular degeneration Osteoarthritis Spinal stenosis Surgical History Brain tumor REMOVED/BENIGN 2011 Cyst ALL OVER BODY (UTERUS CYST/CERVICAL CYST/HAIRLINE/FINGER CYST REMOVED) History of adenoidectomy History of anesthesia reaction SLOW TO WAKE UP/EASY TO GO UNDER History of appendectomy History of colonoscopy History of esophagogastroduodenoscopy (EGD) History of hysterectomy History of tonsillectomy History of tooth extraction Hx of LASIK Family History Mother Family history of diabetes mellitus Social History Preferred Language: B[place] Communication Ability: Effective 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 No open skin lesions or discharge. Eyes: Pupils are equal and react to light and accommodating. Extraocular movements are intact. Throat: Posterior pharynx is clear with absence of edema, erythema, or exudate. Cardiovascular exam: The patient has a regular rate and rhythm with no murmurs or gallops appreciated. Lungs: Auscultation of lung mcpherson reveals clear breath sounds throughout, no wheezing, rales, or rhonchi. Abdomen is obese, nondistended, nontender with normoactive bowel sounds. Extremities: Left knee - the patient's range of motion is from 6 degrees, extension to 118 degrees of flexion. Has marked crepitation with range of motion, medial and lateral joint line tenderness on knee is palpated in flexed position. McMur ray's test elicits pain to the medial and lateral joint line. There is no varus or valgus laxity, negative AP drawer sign, negative Anupama test. The patient's patella is nonmobile due to arthritic changes within the patellofemoral joint. The calf is soft and supple, nontender to palpation. She is neurovascularly intact in the left lower extremity. Neurological exam: Cranial nerves 2-12 are intact. No motor or sensory deficit. Psychological/general exam: The patient is alert and oriented x3 with proper grooming and hygiene. Results & Data Laboratory Results Laboratory Results - last 24 hr 03/15/19 03/15/19 03/15/19 11:45 11:54 11:54 WBC 6.91 RBC 4.96 Hgb 15.9 Hct 44.0 MCV 88.7 MCH 32.1 MCHC 36.1 H RDW Std Deviation 41.3 RDW Coeff of Walt 12.9 Plt Count 236 MPV 10.3 Immature Gran % (Auto) 0.3 Neut % (Auto) 54.4 Lymph % (Auto) 35.3 [place] % (Auto) 7.4 Eos % (Auto) 2.0 Baso % (Auto) 0.6 Immature Gran # (Auto) 0.02 Neut # (Auto) 3.76 Lymph # (Auto) 2.44 [place] # (Auto) 0.51 Eos # (Auto) 0.14 Baso # (Auto) 0.04 PT 10.7 INR 1.0 APTT 28.7 PTT Ratio 1.1 Sodium Potassium Chloride Carbon Dioxide Anion Gap BUN Creatinine Est Cr Clr Drug Dosing Est GFR ( Amer) Est GFR (Non-Af Amer) BUN/Creatinine Ratio Glucose Estimat Average Glucose Hemoglobin A1c Calcium Total Bilirubin AST ALT Alkaline Phosphatase Total Protein Albumin Globulin Albumin/Globulin Ratio Urine Color Yellow Urine Appearance Clear Urine pH 6.0 Ur Specific [place] 1.019 Urine Protein Negative Urine Glucose (UA) Negative Urine Ketones Trace H Urine Blood Trace H Urine Nitrite Negative Urine Bilirubin Negative Urine Urobilinogen Negative Ur Leukocyte Esterase Trace H Urine WBC (Auto) 1-5 Urine RBC (Auto) 5-10 H U Hyaline Cast (Auto) 1-5 U Epithel Cells (Auto) >30 H Urine Bacteria (Auto) 1+ H Urine Mucus Present H Nasal Screen MRSA (PCR) Blood Type Antibody Screen 03/15/19 03/15/19 03/15/19 11:54 11:54 11:54 WBC RBC Hgb Hct MCV MCH MCHC RDW Std Deviation RDW Coeff of Walt Plt Count MPV Immature Gran % (Auto) Neut % (Auto) Lymph % (Auto) [place] % (Auto) Eos % (Auto) Baso % (Auto) Immature Gran # (Auto) Neut # (Auto) Lymph # (Auto) [place] # (Auto) Eos # (Auto) Baso # (Auto) PT INR APTT PTT Ratio Sodium 142 Potassium 4.0 Chloride 110 H Carbon Dioxide 24 Anion Gap 7.0 BUN 14 Creatinine 0.66 Est Cr Clr Drug Dosing 100.9 Est GFR ( Amer) 111.3 Est GFR (Non-Af Amer) 96.0 BUN/Creatinine Ratio 22.0 H Glucose 84 Estimat Average Glucose 108 Hemoglobin A1c 5.4 Calcium 9.8 Total Bilirubin 0.5 AST 25 ALT 34 Alkaline Phosphatase 93 Total Protein 7.4 Albumin 4.0 Globulin 3.4 Albumin/Globulin Ratio 1.2 Urine Color Urine Appearance Urine pH Ur Specific [place] Urine Protein Urine Glucose (UA) Urine Ketones Urine Blood Urine Nitrite Urine Bilirubin Urine Urobilinogen Ur Leukocyte Esterase Urine WBC (Auto) Urine RBC (Auto) U Hyaline Cast (Auto) U Epithel Cells (Auto) Urine Bacteria (Auto) Urine Mucus Nasal Screen MRSA (PCR) Blood Type O Positive Antibody Screen NEGATIVE 03/15/19 Unknown WBC RBC Hgb Hct MCV MCH MCHC RDW Std Deviation RDW Coeff of Walt Plt Count MPV Immature Gran % (Auto) Neut % (Auto) Lymph % (Auto) [place] % (Auto) Eos % (Auto) Baso % (Auto) Immature Gran # (Auto) Neut # (Auto) Lymph # (Auto) [place] # (Auto) Eos # (Auto) Baso # (Auto) PT INR APTT PTT Ratio Sodium Potassium Chloride Carbon Dioxide Anion Gap BUN Creatinine Est Cr Clr Drug Dosing Est GFR ( Amer) Est GFR (Non-Af Amer) BUN/Creatinine Ratio Glucose Estimat Average Glucose Hemoglobin A1c Calcium Total Bilirubin AST ALT Alkaline Phosphatase Total Protein Albumin Globulin Albumin/Globulin Ratio Urine Color Urine Appearance Urine pH Ur Specific [place] Urine Protein Urine Glucose (UA) Urine Ketones Urine Blood Urine Nitrite Urine Bilirubin Urine Urobilinogen Ur Leukocyte Esterase Urine WBC (Auto) Urine RBC (Auto) U Hyaline Cast (Auto) U Epithel Cells (Auto) Urine Bacteria (Auto) Urine Mucus Nasal Screen MRSA (PCR) Negative Blood Type Antibody Screen
[2019-04-06] MEDS ORDERED: LR 60ML/HR IV SCH (06:00)
[2019-04-06] MEDS ORDERED: LR 500ML BOLUS, THEN 15ML/HR IV SCH (06:00)
[2019-04-06] MEDS ORDERED: dexAMETHasone 4 MG TAB PO SCH (06:00)
[2019-04-06] MEDS ORDERED: METOCLOPRAMIDE HCL 10 MG TABLET PO SCH (06:00)
[2019-04-06] MEDS ORDERED: ROPIVACAINE 0.5% HCL/PF 150 MG, BUPIVACAINE 0.5% MPF 30 ML, EPINEPHrine 0.15 MG, Ketoro... INFIL SCH (06:00)
[2019-04-06] MEDS ORDERED: ACETAMINOPHEN 500 MG TAB PO SCH (06:00)
[2019-04-06] MEDS ORDERED: SCOPOLAMINE 1.5 MG TDSY TD SCH (06:00)
[2019-04-06] MEDS ORDERED: CEFAZOLIN 2000MG 2,000 MG/15 ML SYR IV SCH (06:00)
[2019-04-06] MEDS ORDERED: TRANEXAMIC ACID 1,000 MG **IV Pre-op IV SCH (06:00)
[2019-04-06] MEDS ORDERED: CeleBREX 200 MG CAP PO SCH (06:00)
[2019-04-06] MEDS ORDERED: FAMOTIDINE 20 MG TAB PO SCH (06:00)
[2019-04-06] MEDS ORDERED: BUPIVACAINE 0.5 % 5 MG/1 ML PF 10ML VIAL ONE (06:17)
[2019-04-06] MEDS ORDERED: ROPIVACAINE 0.5% 5 MG/ML 30 ML VIAL ONE (06:17)
[2019-04-06] MEDS ORDERED: EPINEPHrine INJ 1 MG/ML AMP ONE (06:18)
[2019-04-06] MEDS ORDERED: TRANEXAMIC ACID 1,000 MG **IV Intra-op IV SCH (06:30)
--- NOTE | 2019-04-06 06:39 | History & Physical Bridge Note ---
Date of Service April 06, 2019 History & Physical Bridge Note I have examined the patient, reviewed the History & Physical and in the interval since the performance of the History & Physical I have noted the following changes of clinical significance: no changes noted
[2019-04-06] MEDS ORDERED: MIDAZOLAM HCL 1 MG/ML 2ML VIAL ONE ×2 (06:50→07:50)
[2019-04-06] MEDS ORDERED: PROPOFOL IV EMULSION 10 MG/ML 20 ML VIAL IV ONE ×2 (06:50→08:22)
[2019-04-06] MEDS ORDERED: LIDOCAINE HCL 2% 2 ML VIAL/AMP(20MG/ML) INFIL ONE (06:50)
[2019-04-06] MEDS ORDERED: HYDROmorphone INJ 1 MG/ML SYRINGE IV PRN (06:52)
[2019-04-06] MEDS ORDERED: ONDANSETRON INJ 2 MG/ML 2 ML VIAL IV PRN ×2 (06:52→09:07)
[2019-04-06] MEDS ORDERED: ePHEDrine sulfate 50 MG/ML AMP IV PRN (06:52)
[2019-04-06] MEDS ORDERED: ATROPINE SULFATE 0.1 MG/ML 10ML SYR IV PRN (06:52)
[2019-04-06] MEDS ORDERED: fentaNYL citrate 100 MCG/2 ML VIAL IV PRN (06:52)
[2019-04-06] MEDS ORDERED: ORTHO JOINT ANESTHETIC ONE (07:05)
[2019-04-06] MEDS ORDERED: POVIDONE-IODINE OP SOLN 30 ML BTL ONE (07:05)
--- NOTE | 2019-04-06 08:53 | Post Operative Brief Note ---
Immediate Post Op Note v1 Date of Surgery April 06, 2019 Pre & Post Diagnosis Operation Date: 04/06/19 07:15 Pre-Op Diagnosis: Left Knee Osteoarthritis Post-Op Diagnosis: Left Knee Osteoarthritis Procedure Operation Date: 04/06/19 07:15 Actual Procedures p Left Total Knee Arthroplasty(Left) - Harmeet Wheeler MD Surgeon Harmeet Wheeler MD Pusher Runner AMANDA Craig PA-C Estimated Blood Loss 50 Findings Consistent with Post-Op Diagnosis Fluids 1100 Specimens Bone cuts Anesthesia Type Spinal MAC Complications none Disposition Accompanied Patient To Recovery: No Disposition: Recovery Room
--- NOTE | 2019-04-06 09:06 | Operative Report ---
Post Operative Report Pre & Post Diagnosis Operation Date: 04/06/19 07:15 Pre-Op Diagnosis: Left Knee Osteoarthritis Post-Op Diagnosis: Left Knee Osteoarthritis Procedure Operation Date: 04/06/19 07:15 Actual Procedures p Left Total Knee Arthroplasty(Left) - Harmeet Wheeler MD Surgeon Harmeet Wheeler MD Child Development Associate Teacher AMANDA Craig PA-C Estimated Blood Loss 50 Findings Consistent with Post-Op Diagnosis Specimens none Complications none Disposition Accompanied Patient To Recovery: Yes Disposition: Recovery Room Description of Procedure I was present during the entire case assisting with wound closure and dressing application. Please see Dr. Wheeler procedure note for specifics of the case. I attest to the content of the Intraoperative Record and any orders documented therein. Any exceptions are noted below.
[2019-04-06] MEDS ORDERED: NALOXONE HCL 0.4 MG/1 ML VIAL/CARP IV PRN (09:07)
[2019-04-06] MEDS ORDERED: BISACODYL 10 MG SUPP PR PRN (09:07)
[2019-04-06] MEDS ORDERED: HYDROmorphone INJ 0.5 MG/0.5 ML SYR IV PRN (09:07)
[2019-04-06] MEDS ORDERED: OXYCODONE HCL IR 5 MG TAB (IMMEDIATE RELEASE) PO PRN (09:07)
[2019-04-06] MEDS ORDERED: METOCLOPRAMIDE HCL INJ 5 MG/ML 2 ML VIAL IV PRN (09:07)
[2019-04-06] MEDS ORDERED: MAGNESIUM HYDROXIDE SUSP 30 ML UDC PO PRN (09:07)
[2019-04-06] MEDS ORDERED: ALUMINUM/MAGNESIUM SUSP 30 ML UDC PO PRN (09:07)
[2019-04-06] MEDS ORDERED: DiphenhydrAMINE HCL 50 MG/ML VIAL IV PRN (09:07)
[2019-04-06] MEDS ORDERED: DICLOFENAC SOD 1% GEL 100 GM TUBE PRN (09:12)
--- NOTE | 2019-04-06 09:31 | XRay Report ---
XR knee LT 2V routine CLINICAL HISTORY: 59 years-old Female presenting with Surgical Post Op. TECHNIQUE: Frontal and lateral views of the left knee were obtained. COMPARISON: 03/15/2019. FINDINGS: Postsurgical changes of total left knee arthroplasty with patellar resurfacing. Expected intra-articu lar and soft tissue emphysema. Mild swelling at the knee. No periprosthetic fracture or periprostheti c lucency. No malalignment. IMPRESSION: Expected postsurgical appearance status post total left knee arthroplasty with patellar resurfacing. Electronically signed by: Harmeet Pineda M.D. 04/06/2019 9:30 AM
--- NOTE | 2019-04-06 10:00 | Anesthesiology Progress Note ---
Date of Service April 06, 2019 Anesthesia Post Procedure Vital Signs Vital Signs: Temp Pulse Pulse Resp BP Pulse Ox 04/06/19 09:55 68 16 114/68 94 04/06/19 09:45 36.5 C 64 15 111/63 95 04/06/19 09:35 59 L 12 100/64 92 04/06/19 09:25 65 15 104/64 92 04/06/19 09:15 68 15 106/61 93 04/06/19 09:07 36.6 C 82 13 106/62 93 04/06/19 05:40 36.5 C 82 20 149/107 H 96 Pain Intensity Left Knee: Pain Intensity: 0 Transfer of Care Handoff Completed per policy Notes Mental Status: alert / awake / arousable and participated in evaluation Patient Amnestic to Procedure: Yes Nausea / Vomiting: adequately controlled Pain: adequately controlled Airway Patency, RR, SpO2: stable & adequate BP & HR: stable & adequate Hydration State: stable & adequate Anesthetic Complications: no major complications apparent and Pt Satisfied with anesthetic care
--- NOTE | 2019-04-06 10:05 | Operative Report ---
DATE OF OPERATION: 04/06/2019 PREOPERATIVE DIAGNOSIS: Left knee osteoarthritis. POSTOPERATIVE DIAGNOSIS: Left knee osteoarthritis. OPERATION PERFORMED: Left total knee arthroplasty. SURGEON: Harmeet Wheeler MD YARD DEMURRAGE CLERK: Mukesh Craig. ESTIMATED BLOOD LOSS: 50 mL. INTRAVENOUS FLUIDS: 1100 mL crystalloid. SPECIMENS: Bone cuts from the femur and tibia. COMPLICATIONS: None. IMPLANTS: 1. DePuy Sigma size 3 left posterior stabilized cemented femur. 2. DePuy MBT keel size 2.5 cemented rotating platform tibial tray. 3. DePuy 10 mm thickness insert to match a size 3 femur rotating platform polyethylene. 4. A 38 mm oval dome patella. INDICATIONS: Ms. Marcial is a 59-year-old female with left knee osteoarthritis that has been refractory to conservative management. I had a long discussion with her about the risks and benefits of surgery, alternatives to surgery and expected outcomes. After reviewing all these, she elected to proceed with surgery. All questions were answered. Informed consent was signed. OPERATIVE FINDINGS: Findings were consistent with degenerative osteoarthritis of the left knee. She had a 15-degree flexion contracture and flexed up to 115 degrees prior to incision. At the conclusion of the case, she had a range of motion from 0-140 degrees and was stable to varus and valgus throughout. DESCRIPTION OF THE OPERATION: The patient was identified in the preoperative holding area where her surgical site was marked. She was given a spinal anesthesia and brought back to the main operating room where she was placed on the operating room table and IV sedation was administered. All bony prominences were padded. Perioperative antibiotics were administered. She was prepped and draped in the normal sterile fashion. Prior to incision, a multidisciplinary timeout was called. All in the room were in agreement. We began by exsanguinating the limb with an Esmarch bandage. Tourniquet was inflated to 250 mmHg. A 14 cm long incision was made starting over the quadriceps tendon and moving longitudinally over the midportion of the patella and ending just on the medial aspect of the tibial tubercle. I dissected down through the subcutaneous tissues to the level of the fascia. Full thickness fascial flaps were raised. Arthrotomy was made. Half of the fat pad was excised. Subperiosteal medial release was performed. Synovitis in the suprapatellar pouch was excised. The patella was then everted and clipped with 2 towel clips. The thickness was measured at 21 mm. I then resected 9 mm using a saw. The patella was sized to a 38. The 3 drill holes were placed. The trial button was placed back into position. The thickness now measured 21 mm matching her [place] patella. The patellar trial was then removed. The patella was everted and the knee was flexed up. Notch osteophytes were removed. The cruciate ligaments were excised. The intramedullary guide was placed for the femur. The distal femoral cut was made to resect 11 mm. This was at 5 degrees of valgus. The tibia was then exposed. The lateral meniscus was excised. The tibial cut was made to remove 10 mm off of the less involved lateral tibial plateau. Once this was complete, the extension block was placed. She was able to reach full extension and had a rectangular extension gap. At this point, the knee was flexed back up. Collateral ligaments were protected. Her femur was sized to a size 3. The 3 degree external rotation guide was used and the pin holes were placed. The 4-in-1 cutting guide was then slid down over the pins and secured. The anterior, posterior and chamfer cuts were then made. The flexion block was placed. She fit a size 10 in flexion as well as extension and was stable with a rectangular joint space. At this point, the box cutting guide was placed. The box cut was made. We then turned our attention back towards the tibia. The tibia was sized at 2.5. A 2.5 tray was then pinned into position. Intramedullary drill was used followed by the keel punch. We then placed a 10 mm thickness polyethylene on top of the tibial tray and brought the knee through a full range of motion. She was stable to varus and valgus throughout and range of motion was from 0-140 degrees. Excellent patellar tracking. At this point, all of our trial components were removed. The cement was mixed on the back table. Her bony cut surfaces were irrigated and dried. We then cemented on the femur followed by the tibia, then the patella. Excess cement was removed. The knee was brought out into full extension while the trial polyethylene for a 10 mm thickness was utilized. The wound was allowed to soak with a dilute Betadine solution while the cement cured. Once the cement was cured, the Betadine was sucked out and the wound was irrigated with copious amounts of normal saline. The tourniquet was let down and the knee was inspected and meticulous hemostasis was achieved. We then flexed the knee back up and injected our periarticular cocktail in the posterior aspect of the knee, taking great care to avoid the peroneal nerve as well as the tibial artery and vein. We then placed the real 10 mm thickness polyethylene. We then began to close. The arthrotomy was closed with a #1 Ethibond in the patellar and quadriceps tendon with 0 Vicryl around the patellar retinaculum in [id number] fashion. A 0 Vicryl was used for the subcutaneous layers proximally. A 2-0 Vicryl was run in the deep dermis. A ZipLine was placed. A Silverlon was placed over top of the ZipLine. A compressive dressing was placed. The patient was then transferred to the recovery room in stable condition. POSTOPERATIVE COURSE: The patient will be admitted to the floor overnight for pain control and physical therapy. X-rays are pending in the recovery room. She will be on aspirin for DVT prophylaxis. I attest to the content of the Intraoperative Record and any orders documented therein. Any exception s are noted below.
--- NOTE | 2019-04-06 10:12 | Anesthesiology Progress Note ---
Date of Service April 06, 2019 Anesthesia Post Procedure Vital Signs Vital Signs: Temp Pulse Pulse Resp BP Pulse Ox 04/06/19 10:00 68 12 112/62 93 04/06/19 09:55 68 16 114/68 94 04/06/19 09:45 36.5 C 64 15 111/63 95 04/06/19 09:35 59 L 12 100/64 92 04/06/19 09:25 65 15 104/64 92 04/06/19 09:15 68 15 106/61 93 04/06/19 09:07 36.6 C 82 13 106/62 93 04/06/19 05:40 36.5 C 82 20 149/107 H 96 Pain Intensity Left Knee: Pain Intensity: 0 Transfer of Care Handoff Completed per policy Notes Mental Status: alert / awake / arousable and participated in evaluation Patient Amnestic to Procedure: Yes Nausea / Vomiting: adequately controlled Pain: adequately controlled Airway Patency, RR, SpO2: stable & adequate BP & HR: stable & adequate Hydration State: stable & adequate Neuraxial Anesthesia: was administered and sensory block is resolving Anesthetic Complications: no major complications apparent and Pt Satisfied with anesthetic care
--- NOTE | 2019-04-06 10:48 | Operative Report ---
Post Operative Report Pre & Post Diagnosis Operation Date: 04/06/19 07:15 Pre-Op Diagnosis: Left Knee Osteoarthritis Post-Op Diagnosis: Left Knee Osteoarthritis Procedure Operation Date: 04/06/19 07:15 Actual Procedures p Left Total Knee Arthroplasty(Left) - Harmeet Wheeler MD Surgeon Harmeet Wheeler MD Digital Performance Analyst AMANDA Craig PA-C Estimated Blood Loss 50 I attest to the content of the Intraoperative Record and any orders documented therein. Any exceptions are noted below.
[2019-04-06] MEDS: SODIUM CHLORIDE 0.9% 1000ML 1,000 ML IV SCH ×2 (10:57→22:23)
[2019-04-06] MEDS: KETOROLAC 30 MG/ML VIAL IV SCH ×3 (11:20→23:47)
[2019-04-06] MEDS: ACETAMINOPHEN 500 MG TAB PO SCH ×2 (13:15→22:21)
[2019-04-06] MEDS ORDERED: TRANEXAMIC ACID 1,000 MG in 0.9 % SODIUM CHLORIDE 100 ML IV SCH (15:30)
[2019-04-06] MEDS: CHECK SCOPOLAMINE PATCH PLACEMENT SCH ×2 (16:13→23:46)
[2019-04-06] MEDS: CEFAZOLIN 2000MG 2,000 MG/15 ML SYR IV SCH ×2 (16:13→23:47)
[2019-04-06] MEDS: ASPIRIN 81 MG ECTAB PO SCH (20:36)
[2019-04-06] MEDS: PANTOprazole 40 MG TAB PO SCH (20:36)
[2019-04-06] MEDS: OMEGA-3 (PURIFIED FISH OIL) 1 GM CAP PO SCH (20:36)
[2019-04-06] MEDS: DOCUSATE SODIUM 100 MG CAP PO SCH (20:36)
[2019-04-06] MEDS ORDERED: SENNA 8.6 MG TAB PO SCH (21:00)
[2019-04-06] MEDS ORDERED: FEXOFENADINE HCL 180 MG TAB PO SCH (21:00)
[2019-04-06] MEDS: NYSTATIN POWDER 15GM BTL EXT SCH (22:21)
[2019-04-07] MEDS: KETOROLAC 30 MG/ML VIAL IV SCH (05:21)
[2019-04-07] MEDS: ACETAMINOPHEN 500 MG TAB PO SCH (05:24)
[2019-04-07 05:38] LABS: Hematocrit (blood only) 35.5 % (37-47); Hemoglobin 12.6 g/dL (12.0-16.0); Mean Corpuscular Hgb Conc 35.5 g/dL (32-36); Mean Corpuscular Volume 87.7 fL (80-100); Mean Platelet Volume 9.9 fL (7.4-10.4); Platelet Count 205 K/uL (130-400); RDW Coefficient of Variation 12.6 % (11.5-14.5); Red Blood Count 4.05 M/uL (4.2-5.4); White Blood Count 14.12 K/uL (4.8-10.8)
[2019-04-07 06:06] LABS: BUN Creatinine Ratio 13.8 (10-20); Calcium 8.6 mg/dl (8.5-10.1); Creatinine Clr Calc Pharmacy 91.6 ml/min; Est GFR (African American) 103.8; Est GFR (Non-African American) 89.5; Potassium 3.5 mmol/L (3.5-5.1)
[2019-04-07] MEDS: OMEGA-3 (PURIFIED FISH OIL) 1 GM CAP PO SCH (07:37)
[2019-04-07] MEDS: ASPIRIN 81 MG ECTAB PO SCH (07:37)
[2019-04-07] MEDS: DOCUSATE SODIUM 100 MG CAP PO SCH (07:37)
[2019-04-07] MEDS: PANTOprazole 40 MG TAB PO SCH (07:37)
[2019-04-07] MEDS: NYSTATIN POWDER 15GM BTL EXT SCH (07:38)
[2019-04-07] MEDS ORDERED: dexAMETHasone 4 MG TAB PO SCH (08:00)
--- NOTE | 2019-04-07 08:14 | Anesthesiology Progress Note ---
Date of Service April 07, 2019 Anesthesia Post Procedure Vital Signs Vital Signs: Temp Pulse Pulse Pulse Resp BP BP 04/07/19 02:28 36.5 C 65 16 151/79 H 04/06/19 23:25 36.4 C L 57 L 16 129/78 04/06/19 19:27 36.5 C 68 14 142/83 H 04/06/19 15:08 36.9 C 64 16 120/73 04/06/19 13:12 76 16 124/80 04/06/19 12:15 36.5 C 78 17 118/79 04/06/19 11:10 70 16 126/80 04/06/19 10:47 60 16 119/81 04/06/19 10:30 36.9 C 71 15 116/72 04/06/19 10:00 68 12 112/62 04/06/19 09:55 68 16 114/68 04/06/19 09:45 36.5 C 64 15 111/63 04/06/19 09:35 59 L 12 100/64 04/06/19 09:25 65 15 104/64 04/06/19 09:15 68 15 106/61 04/06/19 09:07 36.6 C 82 13 106/62 Pulse Ox 04/07/19 02:28 91 04/06/19 23:25 93 04/06/19 19:27 93 04/06/19 15:08 95 04/06/19 13:12 90 04/06/19 12:15 92 04/06/19 11:10 91 04/06/19 10:47 91 04/06/19 10:30 92 04/06/19 10:00 93 04/06/19 09:55 94 04/06/19 09:45 95 04/06/19 09:35 92 04/06/19 09:25 92 04/06/19 09:15 93 04/06/19 09:07 93 Pain Intensity Left Knee: Pain Intensity: 1 Notes Mental Status: alert / awake / arousable Nausea / Vomiting: adequately controlled Pain: adequately controlled Airway Patency, RR, SpO2: stable & adequate BP & HR: stable & adequate Hydration State: stable & adequate Neuraxial Anesthesia: was administered and sensory block resolved Anesthetic Complications: no major complications apparent and Pt Satisfied with anesthetic care
[2019-04-07] MEDS ORDERED: ASCORBIC ACID 500 MG TAB PO SCH (09:00)
[2019-04-07] MEDS ORDERED: MULTIVITAMIN TAB PO SCH ×2 (09:00)
[2019-04-07] MEDS ORDERED: DOCUSATE SODIUM PO SCH (09:00)
[2019-04-07] MEDS ORDERED: POLYETHYLENE (MIRALAX) 17 GM PACK PO SCH (09:00)
--- NOTE | 2019-04-07 10:38 | Orthopedic Progress Note ---
Date of Service April 07, 2019 Assessment & Plan (1) S/P total knee replacement using cement: PT/OT while in patient Plan on discharge home today with in home therapy DVT prophy with Aspirin and TEDs WBAT with walker assistance and immobilizer for first 48 hrs post op Pain control with PO meds Ice with EZ wrap F/u at [facility] as previously scheduled. Subjective Day 1 s/p left total knee arthroplasty. Doing very well. States that PT/OT went extremely well. Patient states that her pain is very minimal and well controlled with PO meds. She is ready to go home. She denies CP, SOB, Nausea, vomiting, fever, chills, sweat or lethargy. Review of Systems Review of Systems: All systems reviewed & are unremarkable except as noted in HPI & below Physical Exam Physical Exam: Left Knee: Dressing clean, dry and intact. Knee ROM fro 0-90. Mild edema. No erythema, ecchymosis, warmth or palpable deformity. Calf soft and supple. Quad strength 5/5. Able to easily perform SLRT. NV intact in entire Left LE. Results & Data Vital Signs (Past 12 Hours) Vital Signs Temp Pulse Pulse Resp BP Pulse Ox 04/07/19 08:00 36.9 C 66 17 122/78 96 04/07/19 02:28 36.5 C 65 16 151/79 H 91 04/06/19 23:25 36.4 C L 57 L 16 129/78 93
--- NOTE | 2019-04-07 11:58 | Discharge Summary ---
Date of Service April 07, 2019 Admission HPI Per Admitting Provider HISTORY OF PRESENT ILLNESS: This 59-year-old female who presents to clinic today for preoperative history and physical. The patient complains of approximately 20-year history of left knee pain. She states that this past July she fell, striking the knee, and since that time has had increased pain. She has failed conservative treatment with steroid injections, use of topical and oral anti-inflammatory medication, and pain relieving agents. She has also tried physical therapy without improvement. The patient complains of circumferential pain around the entire left knee, worse over the medial surface. The patient has been wearing a knee brace and also using Tylenol with only minimal relief. PAST SURGICAL HISTORY: Tonsillectomy/adenoidectomy, hemorrhoid excision, hysterectomy, LASIK eye surgery, appendectomy, colonoscopy, dental surgery, brain surgery (excision of meningioma), EGD, occipital cyst excision, barium swallow, rectal biopsy, and dental implant. PAST MEDICAL HISTORY: Hemorrhoids, eczema, macular degeneration, idiopathic urticaria, dysphagia, history of sebaceous cyst, lumbar radiculopathy, seborrheic keratosis, constipation, cervical radiculopathy, degenerative disk disease of the cervical spine, brain tumor (meningioma), diabetes, hypertriglyceridemia, lichen sclerosus, and obesity. FAMILY HISTORY: Positive for cancer, diabetes, heart disease, and problems with anesthesia. ALLERGIES: THE PATIENT HAS MEDICATION ALLERGIES TO DEXILANT, DUST, DUST MITES, AND MOLD. CURRENT MEDICATIONS: Monica 180 mg tablet daily, pantoprazole 20 mg tablet 2 times daily, fish oil 4 soft gels 2 a day, PreserVision Ared 2, 2 pills daily, MiraLax 1 capful mixed with liquid daily, stool softener 2 caplets daily, diclofenac topical 1% gel 4 times daily as needed, clobetasol propionate cream applied once daily, Nyamyc powder applied to her belly daily, RectiCare lidocaine 5% cream applied daily, multivitamin 1 a day, 50+ daily, and vitamin C 500 mg capsules daily. SOCIAL HISTORY: Completely unremarkable. Admission Exam Per Admitting Provider Physical Exam Vital Signs (Past 24 Hours): PHYSICAL EXAMINATION: Skin: The patient's skin is normal in appearance. No open skin lesions or discharge. Eyes: Pupils are equal and react to light and accommodating. Extraocular movements are intact. Throat: Posterior pharynx is clear with absence of edema, erythema, or exudate. Cardiovascular exam: The patient has a regular rate and rhythm with no murmurs or gallops appreciated. Lungs: Auscultation of lung mcpherson reveals clear breath sounds throughout, no wheezing, rales, or rhonchi. Abdomen is obese, nondistended, nontender with normoactive bowel sounds. Extremities: Left knee - the patient's range of motion is from 6 degrees, extension to 118 degrees of flexion. Has marked crepitation with range of motion, medial and lateral joint line tenderness on knee is palpated in flexed position. Mango's test elicits pain to the medial and lateral joint line. There is no varus or valgus laxity, negative AP drawer sign, negative Anupama test. The patient's patella is nonmobile due to arthritic changes within the patellofemoral joint. The calf is soft and supple, nontender to palpation. She is neurovascularly intact in the left lower extremity. Neurological exam: Cranial nerves 2-12 are intact. No motor or sensory deficit. Psychological/general exam: The patient is alert and oriented x3 with proper grooming and hygiene. Principal Diagnosis Left knee osteoarthritis Discharge Exam Physical Exam Physical Exam: Left Knee: Dressing clean, dry and intact. Knee ROM fro 0-90. Mild edema. No erythema, ecchymosis, warmth or palpable deformity. Calf soft and supple. Quad strength 5/5. Able to easily perform SLRT. NV intact in entire Left LE. Discharge Data Allergies Allergy/AdvReac Type Severity Reaction Status Date / Time blue dye Allergy Severe DIFFICULTY Verified 04/06/19 05:33 BREATHING dexlansoprazole Allergy Severe DIFFICULTY Verified 04/06/19 05:33 BREATHING bee venom protein (honey bee) Allergy Intermediate RASH/SWELLI Verified 04/06/19 05:33 NG mold Allergy Intermediate SHORTNESS Verified 04/06/19 05:33 OF BREATH dog dander AdvReac Intermediate Sore Verified 04/06/19 05:33 throat, sneeze, eyes water Consultations 04/06/19 09:07 Consult Case Management - Discharge Planning Routine Procedures Performed Operation Date: 04/06/19 07:15 Actual Procedures p Left Total Knee Arthroplasty(Left) - Harmeet Wheeler MD Ordered Studies 04/06/19 05:00 US - OR guided needle placemen Routine 04/06/19 06:50 US - OR guided needle placemen Routine Hospital Course (1) S/P total knee replacement using cement: Day 1 s/p Left Total knee arthroplasty. Did extremely well overnight and with PT/OT this AM. Patient is ready to be discharged home. PT/OT while in patient Plan on discharge home today with in home therapy DVT prophy with Aspirin and TEDs WBAT with walker assistance and immobilizer for first 48 hrs post op Pain control with PO meds Ice with EZ wrap F/u at [facility] as previously scheduled. Total Time Total Time Spent Total Time Spent (In Minutes): 20 Total Time Includes: Examination of the Patient, Discharge Planning and Medication Reconciliation Discharge Plan Discharge Items Patient Disposition: Home - Home Health Services Reason For Visit: Left Knee Osteoarthritis Discharge Diagnosis: Left knee osteoarthritis Discharge Goals: Decrease discomfort, Improve function and Increase independence Activity: As commented below Lifting: None Bathing: Keep incision dry Bathing Comment: May shower tomorrow Sexual Activity: Wait until after follow-up appointment Exercise/Sports: Wait until after follow-up appointment Driving/Machine Use Comment: No driving until cleared by adoption specialist Weightbearing: Left weightbearing Weightbearing Comment: as tolerated with knee immobilizer and walker assistance Non-emergency contact: Primary Care Provider Call non-emergency contact if: you have any medication questions, your pain is not controlled, your temperature is above 101.5, your wound has increased drainage and your wound pain has increased Follow-up/Referrals: Chevy Raza MD [Primary Care Provider] - Diet: Regular Addtl Provider Instructions: Post-operative Instructions Dear Patient and Family/Friends, Before you are discharged from the hospital, it is important to know what to expect when you get home after surgery. To that end, we have created this sheet of discharge instructions which covers many commonly asked questions. Make sure you go through this sheet in its entirety with your nurse before you are discharged. Please note that we will go over the specifics of your surgery and recovery when you return for your first post-operative visit. Sincerely, Dr. Wheeler MEDICATIONS: You will be discharged on medications for pain control and for blood clot prevention. Oxycodone 5 mg will be prescribed. You make take this medication every 4-6 hrs as needed for pain. This medication is a narcotic and may cause drowsiness and constipation. You will also be prescribed Diclofenac Sodium 75 mg. This medication is for pain control. It is an NSAID. You make taked 2 tabs by mouth twice daily for 30 days post operatively. Also you should purchase OTC extra strength Tylenol (500mg) to take with every other dose of the Oxycodone for the first few days post op, then may take 1-2 tabs every 6 hrs for pain control. Lastly, you will need to purchase Aspirin 81 mg to be taken twice daily for blood clot prevention. Pain Expect to be in a fair amount of pain after surgery. Remember, our goal is not to eliminate your pain, but to make it tolerable. It is a good idea to stay ahead of your pain by taking the medications you were prescribed once you get home. Typically, the pain starts improving 3-7 days after surgery. You should start weaning off the narcotic pain medication (oxycodone, hydrocodone, hydromorphone, morphine) as soon as your pain improves. Please call our office if your pain is not adequately controlled. Ice Ice your operative site at least 5 times a day for 15-30 minutes at a time. Make sure you have a thin cloth between the ice or cooling unit and your skin to prevent loredo bite. This is especially important if you received a nerve block. Continue icing your operative site for the first 5-7 days after surgery, then as needed. Diet/Nausea/Vomiting Start by drinking clear liquids and eating crackers. If you can tolerate this, then you may resume your normal diet. If you feel nauseated or vomit, take Zofran/ondansetron (if prescribed). Please call our office if you have intractable nausea or vomiting, or, if after hours, you may go to the Emergency Room for help. Constipation Constipation is a common side effect of narcotic pain medication. If you have not had a bowel movement within 2 days after surgery, we recommend purchasing an over the counter laxative such as Milk of Magnesia, Dulcolax, or Miralax from a local pharmacy, and taking it as instructed. Call our clinic if any questions. Slings and Braces If you were placed in a sling or brace, it must be worn at all times, including sleep. You may remove your sling or brace for physical therapy, home exercises, and showering. The length of time you will be in your brace and range of motion restrictions depends on what surgery you had; these details will be reviewed at your first post-operative appointment. Nerve block The anesthesia team sometimes places a nerve block to help with post-operative pain control. This results in significant numbness and inability to move the extremity. The nerve block usually wears off in 8-12 hours, but sometimes can last up to 24 hours. Please call our office if you are still unable to move your extremity after 24 hours, unless you received a pain pump to take home. Nerve blocks typically wear off quickly, so start taking pain medication as soon as you start feeling soreness near your surgical site. Weight bearing and Range of Motion. Do not bear any weight through your operative extremity immediately after surgery. If you had upper extremity surgery, do not lift anything with that arm. If you are in a knee brace, keep it locked in place until your follow-up. We will discuss your weight bearing, range of motion, and lifting restrictions in detail at your first post-operative appointment. Continuous Passive Motion (CPM) Machine If you were prescribed a CPM machine, it will start after your first post- operative appointment, at which time we will give you instructions on the range of motion settings and duration of treatment Physical therapy You will be given a prescription for physical therapy or occupational therapy at your first post-operative appointment. Typically, patients start therapy within 1 week of surgery Wound care and showering We will inspect your wound at your first post-operative visit, and may do a dressing change at that time. Most patients will be in a water-proof dressing that is removed 14 days after surgery. It is normal to see some dried blood on the dressing. Do not remove your dressing, paper strips or sutures yourself unless you are given permission. Showering is allowed the day after surgery. Do not scrub or remove any dressings. The wound should not be submerged underwater (i.e. in a bathtub or pool) until 4 weeks after surgery PA stockings If you were given white stockings, these are to be worn at all times except to shower (on both legs) for the first 2 weeks after surgery. Driving You may not drive while taking narcotic pain medication or while in a cast, splint, sling or brace. You, the patient, need to make the final determination about when you are safe to drive, however, the earliest you may consider driving after surgery is below: Hand/Wrist/Elbow Surgery: 3 days Shoulder Surgery: 2 weeks Hip,/Knee/Ankle Surgery: 4 weeks Fracture repair: 6 weeks Return to Work Your return to work depends on what surgery was done and what type of work you do. Please bring any paperwork your employer needs completed to your first post-operative visit. Also, bring a description of your job duties, as this helps us to understand what risks you may face at work. Travel Avoid long distance travel (greater than 1 hour) in airplanes and cars for the first 6 weeks after surgery. If you must travel, you need to have a Doppler ultrasound done before you travel to rule out a blood clot in your legs. Follow-up You should have a follow-up appointment already scheduled 1-2 days after surgery. If not, please contact our office to make this appointment before you leave the hospital. When to call the office It is normal to have swelling and bruising in the limb that was operated on. This will improve with time. It is also normal to have fevers for the first 2 days after surgery. Reasons you should call your doctor include: Uncontrolled pain; Nausea, vomiting, or constipation that does not improve with medication; Fevers over 101.5, chills, sweats; Drainage or bleeding from the wound; Foul odor; Spreading areas of redness; Any other concerns Prescriptions: New diclofenac sodium 75 mg tablet,delayed release (DR/EC) 75 mg PO BID PRN (Reason: pain) 30 Days Qty: 60 RF: 1 oxycodone 5 mg tablet 5 mg PO .q4-6 PRN (Reason: pain) Qty: 30 RF: 0 Continued multivitamin Tablet 1 tab PO QAM RF: 0 lidocaine [RectiCare] 5 % Cream 1 applic TOPICAL UD RF: 0 fexofenadine [Monica Allergy] 180 mg Tablet 180 mg PO HS RF: 0 pantoprazole 20 mg Tablet,Delayed Release (Dr/Ec) 20 mg PO BID RF: 0 ascorbic acid (vitamin C) [Vitamin C] 500 mg Tablet 500 mg PO QAM RF: 0 nystatin [Nyamyc] 100,000 unit/gram Powder 1 applic TOPICAL BID RF: 0 polyethylene glycol 3350 [Miralax] 17 gram/dose Powder 17 g PO DAILY RF: 0 docusate sodium [Stool Softener] 100 mg Tablet 2 tab PO QAM RF: 0 diclofenac sodium 1 % Gel 1 dose TOPICAL UD PRN (Reason: Pain) RF: 0 omega 1-zug-thf-fish oil [Fish Oil] 1,000 mg (120 mg-180 mg) Capsule 2 cap PO BID RF: 0 PreserVision AREDS-2 [id number] [id number] Capsule 2 tab PO QAM RF: 0 clobetasol 0.025 % Cream 1 applic TOPICAL UD RF: 0 Stand-Alone Forms: [facility], [facility] Discharge Orders: Discharge Order (Routine); Ordered 04/07/19 Ordered By: Stuart Craig Admission Data Admit Date/Time: 04/06/19 09:07 Attending Provider: Harmeet Wheeler Admit Provider: Harmeet Wheeler Primary Care Provider: Chevy Raza Service: Surgical Services Other Interventions: Discharge Summary Assessment (RN) Last Done: 04/07/19 10:52 Pending Studies at Discharge: No
[2019-04-07] MEDS ORDERED: CeleBREX 200 MG CAP PO SCH (21:00)
== END 2019-04-07 12:55 | disposition home health service (06) | DRG 470 ==
LOC: PAT 05:13 → ASU 05:13 → 3E 09:07